=== PATIENT | male | born 1975 | race Hispanic/Latino ===

== ENCOUNTER 2023-11-20 12:20 | Inpatient (IN) | payer OTHER ==
[~2023-11-20] VITALS: Ht 170.2 cm; Wt 163.2 kg
[2023-11-20 14:23] LABS: BASOPHILS # (AUTO) 0.03 K/uL (0.00-0.20); BASOPHILS % (AUTO) 0.3 % (0.0-5.0); EOSINOPHILS # (AUTO) 0.17 K/uL (0.00-0.70); EOSINOPHILS % (AUTO) 1.8 % (0.0-8.0); HEMATOCRIT 48.4 % (42-54); IMMATURE GRANULOCYTE ABSOLUTE 0.08 K/uL (0-1); LYMPHOCYTES # (AUTO) 1.7 K/uL (1.0-4.8); LYMPHOCYTES % (AUTO) 17.3 % (21.0-51.0); MEAN CORPUSCULAR HEMOGLOBIN 31.7 pg (27.0-33.0); MEAN CORPUSCULAR HGB CONC 33.1 g/dL (32.0-36.0); MEAN CORPUSCULAR VOLUME 95.8 fL (79-99); MONOCYTES % (AUTO) 10.7 % (3.0-13.0); NEUTROPHILS # (AUTO) 6.7 K/uL (1.8-7.7); NEUTROPHILS % (AUTO) 69.1 % (40.0-77.0); PLATELET COUNT (AUTO) 196 K/uL (130-400); RED BLOOD CELL COUNT(AUTO) 5.05 MIL/uL (4.50-6.20); RED CELL DISTRIBUTION WIDTH 14.4 % (11.0-15.5); WHITE BLOOD COUNT (AUTO) 9.6 K/uL (4.8-10.8)
[2023-11-20 14:46] LABS: CREATININE 0.8 mg/dL (0.5-1.5)
[2023-11-20 14:51] LABS: ALBUMIN 3.5 g/dL (3.5-5.0); BILIRUBIN,TOTAL 0.7 mg/dL (0.2-1.0)
[2023-11-20] MEDS ORDERED: FAMOTIDINE 20MG VIAL IV ONE (17:00)
[2023-11-20] MEDS ORDERED: METOCLOPRAMIDE 10 MG/2 ML VIAL IVP ONE (17:00)
[2023-11-20] MEDS ORDERED: VANCOMYCIN KIT 1 GM/250 ML IV.KIT IV ONE (17:00)
[2023-11-20] MEDS ORDERED: 0.9%NACL 1000ML 1,000 ML IV ONE (17:00)
[2023-11-20] MEDS ORDERED: KETOROLAC 30MG VIAL (30MG/ML) IVP ONE (17:00)
[2023-11-20] MEDS: CLINDAMYCIN IVPB 600MG/50ML 50 ML IV SCH ×3 (18:42→20:05)
[2023-11-20] MEDS ORDERED: ACETAMINOPHEN 325 MG TAB PO PRN ×2 (19:00)
[2023-11-20] MEDS ORDERED: MORPHINE 2 MG SYG IV PRN (19:00)
[2023-11-20] MEDS ORDERED: ONDANSETRON 4MG INJ IV PRN (19:00)
[2023-11-20] MEDS ORDERED: VANCOMYCIN 2GM/500 ML BAG 500 ML IV ONE (19:00)
[2023-11-20] MEDS ORDERED: VANCOMYCIN PROTOCOL PER PHARMACY IV PRN (19:00)
[2023-11-20] MEDS ORDERED: LACTATED RINGERS 1000ML 1,983 ML IV ONE (19:00)
[2023-11-20] MEDS: FAMOTIDINE 20MG TAB PO SCH (21:09)
[2023-11-20] MEDS ORDERED: KCL 20 MEQ ERTAB PO PRN (21:30)
[2023-11-20] MEDS ORDERED: POTASSIUM CHLORIDE 10% ELIXIR 20 MEQ/15 ML UDCUP PO PRN (21:30)
[2023-11-20] MEDS ORDERED: MAGNESIUM 2GM PREMIX 50ML 50 ML IV PRN (21:30)
[2023-11-20] MEDS ORDERED: POTASSIUM CHLORIDE 20MEQ/100ML 100 ML IV PRN (21:30)
[2023-11-20 21:59] LABS: APPEARANCE,URINE CLEAR (CLEAR); BILIRUBIN,URINE NEGATIVE (NEGATIVE); COLOR,URINE LIGHT-YELLOW (YELLOW); GLUCOSE, URINE (UA) NEGATIVE (NEGATIVE); KETONES,URINE NEGATIVE (NEGATIVE); LEUKOCYTE ESTERASE ,URINE NEGATIVE Leu/uL (NEGATIVE); NITRATE,URINE NEGATIVE (NEGATIVE); OCCULT BLOOD,URINE NEGATIVE (NEGATIVE); PH,URINE 6.5 (5.0-8.0); PROTEIN,URINE NEGATIVE (NEGATIVE); UROBILINOGEN,URINE 0.2 mg/dL (0.2-1.0)
[2023-11-20 22:00] LABS: ADD UA MICROSCOPIC YES; SQUAMOUS EPITHELIAL CELL,UR RARE /HPF (0-2); WBC,URINE 0-1 /HPF (0-1)
[2023-11-20] MEDS ORDERED: CHLORDIAZEPOXIDE HCL 25 MG CAP ONE (22:19)
[2023-11-20] MEDS: CHLORDIAZEPOXIDE HCL 25 MG CAP PO SCH (22:19)
[2023-11-20] MEDS: LACTATED RINGERS 1000ML 1,000 ML IV SCH (22:20)
[2023-11-20] MEDS ORDERED: LORAZEPAM 2 MG/ML 1 ML VIAL IVP PRN (22:30)
[2023-11-20] MEDS ORDERED: PHARMACY COMMUNICATION MISC PRN (22:30)
[2023-11-21] VITALS (29 sets, daily range): BP systolic 97–159; BP diastolic 53–98; PULSE 74–90; RESP 16–20; O2SAT 95–99
[2023-11-21] MEDS: VANCOMYCIN 1.25 GM/250 ML BAG 250 ML IV SCH ×3 (01:42→19:55)
[2023-11-21] MEDS: CLINDAMYCIN IVPB 600MG/50ML 50 ML IV SCH (03:58)
[2023-11-21] MEDS: HYDRALAZINE 20MG/ML VIAL IV PRN (04:12)
[2023-11-21] MEDS: MORPHINE 4 MG SYG IV PRN ×2 (04:12→10:24)
[2023-11-21 07:39] LABS: BASOPHILS # (AUTO) 0.03 K/uL (0.00-0.20); BASOPHILS % (AUTO) 0.4 % (0.0-5.0); EOSINOPHILS # (AUTO) 0.14 K/uL (0.00-0.70); EOSINOPHILS % (AUTO) 1.7 % (0.0-8.0); HEMATOCRIT 40.7 % (42-54); IMMATURE GRANULOCYTE ABSOLUTE 0.06 K/uL (0-1); LYMPHOCYTES # (AUTO) 1.5 K/uL (1.0-4.8); LYMPHOCYTES % (AUTO) 17.5 % (21.0-51.0); MEAN CORPUSCULAR HEMOGLOBIN 31.6 pg (27.0-33.0); MEAN CORPUSCULAR HGB CONC 33.2 g/dL (32.0-36.0); MEAN CORPUSCULAR VOLUME 95.3 fL (79-99); MONOCYTES # (AUTO) 0.7 K/uL (0.1-1.0); NEUTROPHILS # (AUTO) 6.1 K/uL (1.8-7.7); NEUTROPHILS % (AUTO) 71.7 % (40.0-77.0); PLATELET COUNT (AUTO) 154 K/uL (130-400); RED BLOOD CELL COUNT(AUTO) 4.27 MIL/uL (4.50-6.20); RED CELL DISTRIBUTION WIDTH 14.2 % (11.0-15.5); WHITE BLOOD COUNT (AUTO) 8.5 K/uL (4.8-10.8)
[2023-11-21 07:51] LABS: CREATININE 0.8 mg/dL (0.5-1.5); PHOSPHORUS 3.4 mg/dL (2.5-4.9); POTASSIUM 4.1 mmol/L (3.5-5.1)
[2023-11-21 08:10] LABS: INR <= 0.93 (0.85-1.15); PROTHROMBIN TIME 10.6 SEC (9.6-11.6)
[2023-11-21 08:11] LABS: PARTIAL THROMBOPLASTIN TIME 26.6 SEC (26.3-35.5)
[2023-11-21] MEDS: ENOXAPARIN SODIUM 40 MG/0.4 ML SYRINGE SQ SCH (08:11)
[2023-11-21] MEDS: FAMOTIDINE 20MG TAB PO SCH ×2 (08:11→19:35)
[2023-11-21 08:24] LABS: HEMOGLOBIN A1C 6.4 % (4.0-6.0)
[2023-11-21] MEDS: LACTATED RINGERS 1000ML 1,000 ML IV SCH ×2 (11:25→19:36)
[2023-11-21] MEDS ORDERED: PROPOFOL 10 MG/ML 20ML VIAL IV ONE ×2 (12:49→13:13)
[2023-11-21] MEDS ORDERED: ROCURONIUM BROMIDE 10MG/1ML 5ML VL ONE (12:49)
[2023-11-21] MEDS ORDERED: MIDAZOLAM HCL 1 MG/ML 2ML VIAL ONE (12:49)
[2023-11-21] MEDS ORDERED: SUCCINYLCHOLINE CHLORIDE 20 MG/ML 10 ML VIAL ONE (12:49)
[2023-11-21] MEDS ORDERED: FENTANYL CITRATE PF 50 MCG/1 ML 2ML VIAL ONE (12:50)
[2023-11-21] MEDS ORDERED: ONDANSETRON 4MG INJ IVP PRN (13:30)
[2023-11-21] MEDS ORDERED: SUGAMMADEX SODIUM 200 MG/2 ML VIAL IV ONE (13:39)
[2023-11-21] MEDS: CHLORDIAZEPOXIDE HCL 25 MG CAP PO SCH ×2 (14:00→19:35)
[2023-11-21 22:49] LABS: AMPHET/METH SCREEN,URINE NEGATIVE (NEGATIVE); BARBITURATE SCREEN, URINE NEGATIVE (NEGATIVE); BENZODIAZEPINES SCREEN,URINE POSITIVE (NEGATIVE); CANNABINOID SCREEN,URINE NEGATIVE (NEGATIVE); COCAINE SCREEN,URINE NEGATIVE (NEGATIVE); OPIATE SCREEN,URINE NEGATIVE (NEGATIVE); PHENCYCLIDINE SCREEN,URINE NEGATIVE (NEGATIVE)
[2023-11-22] VITALS (9 sets, daily range): BP systolic 135–163; BP diastolic 71–89; PULSE 75–86; RESP 16–20; O2SAT 95–96
[2023-11-22] MEDS: VANCOMYCIN 1.25 GM/250 ML BAG 250 ML IV SCH ×2 (04:03→14:33)
[2023-11-22] MEDS: HYDRALAZINE 20MG/ML VIAL IV PRN (04:03)
[2023-11-22 04:30] LABS: BASOPHILS # (AUTO) 0.02 K/uL (0.00-0.20); BASOPHILS % (AUTO) 0.3 % (0.0-5.0); EOSINOPHILS % (AUTO) 3.1 % (0.0-8.0); HEMATOCRIT 42.4 % (42-54); IMMATURE GRANULOCYTE ABSOLUTE 0.04 K/uL (0-1); LYMPHOCYTES # (AUTO) 1.3 K/uL (1.0-4.8); LYMPHOCYTES % (AUTO) 20.9 % (21.0-51.0); MEAN CORPUSCULAR HEMOGLOBIN 31.9 pg (27.0-33.0); MEAN CORPUSCULAR HGB CONC 31.8 g/dL (32.0-36.0); MEAN CORPUSCULAR VOLUME 100.2 fL (79-99); MONOCYTES # (AUTO) 0.7 K/uL (0.1-1.0); MONOCYTES % (AUTO) 10.3 % (3.0-13.0); NEUTROPHILS # (AUTO) 4.2 K/uL (1.8-7.7); NEUTROPHILS % (AUTO) 64.8 % (40.0-77.0); PLATELET COUNT (AUTO) 150 K/uL (130-400); RED BLOOD CELL COUNT(AUTO) 4.23 MIL/uL (4.50-6.20); RED CELL DISTRIBUTION WIDTH 14.1 % (11.0-15.5); WHITE BLOOD COUNT (AUTO) 6.4 K/uL (4.8-10.8)
[2023-11-22 04:50] LABS: ALBUMIN 2.9 g/dL (3.5-5.0); BILIRUBIN,TOTAL 0.7 mg/dL (0.2-1.0); CREATININE 0.8 mg/dL (0.5-1.5); POTASSIUM 4.8 mmol/L (3.5-5.1); TOTAL PROTEIN, SERUM 6.7 g/dL (6.0-8.3)
[2023-11-22] MEDS: CHLORDIAZEPOXIDE HCL 25 MG CAP PO SCH ×3 (08:43→21:24)
[2023-11-22] MEDS: FAMOTIDINE 20MG TAB PO SCH ×2 (08:43→21:24)
[2023-11-22] MEDS: ENOXAPARIN SODIUM 40 MG/0.4 ML SYRINGE SQ SCH (08:44)
[2023-11-22] MEDS: LACTATED RINGERS 1000ML 1,000 ML IV SCH (16:42)
[2023-11-23] VITALS (8 sets, daily range): BP systolic 133–179; BP diastolic 79–98; PULSE 74–88; RESP 18–21; O2SAT 96–98
[2023-11-23 04:46] LABS: BASOPHILS # (AUTO) 0.03 K/uL (0.00-0.20); BASOPHILS % (AUTO) 0.5 % (0.0-5.0); EOSINOPHILS # (AUTO) 0.19 K/uL (0.00-0.70); IMMATURE GRANULOCYTE ABSOLUTE 0.04 K/uL (0-1); LYMPHOCYTES # (AUTO) 1.5 K/uL (1.0-4.8); LYMPHOCYTES % (AUTO) 23.1 % (21.0-51.0); MEAN CORPUSCULAR HEMOGLOBIN 31.3 pg (27.0-33.0); MEAN CORPUSCULAR HGB CONC 32.5 g/dL (32.0-36.0); MEAN CORPUSCULAR VOLUME 96.4 fL (79-99); MONOCYTES # (AUTO) 0.6 K/uL (0.1-1.0); NEUTROPHILS % (AUTO) 62.8 % (40.0-77.0); PLATELET COUNT (AUTO) 176 K/uL (130-400); RED BLOOD CELL COUNT(AUTO) 4.15 MIL/uL (4.50-6.20); WHITE BLOOD COUNT (AUTO) 6.4 K/uL (4.8-10.8)
[2023-11-23 05:07] LABS: ALBUMIN 2.8 g/dL (3.5-5.0); BILIRUBIN,TOTAL 0.4 mg/dL (0.2-1.0); CREATININE 0.8 mg/dL (0.5-1.5); POTASSIUM 3.7 mmol/L (3.5-5.1); TOTAL PROTEIN, SERUM 6.7 g/dL (6.0-8.3)
[2023-11-23] MEDS: CHLORDIAZEPOXIDE HCL 25 MG CAP PO SCH ×3 (10:38→21:06)
[2023-11-23] MEDS: FAMOTIDINE 20MG TAB PO SCH ×2 (10:38→21:06)
[2023-11-23] MEDS: ENOXAPARIN SODIUM 40 MG/0.4 ML SYRINGE SQ SCH (10:38)
[2023-11-23] MEDS: VANCOMYCIN 1G/250ML KIT 250 ML IV SCH ×2 (15:28→21:06)
[2023-11-23] MEDS: MORPHINE 4 MG SYG IV PRN (21:10)
[2023-11-24] VITALS (7 sets, daily range): BP systolic 135–150; BP diastolic 75–97; PULSE 74–88; RESP 18–20; O2SAT 96–97
[2023-11-24] MEDS: VANCOMYCIN 1G/250ML KIT 250 ML IV SCH ×3 (05:14→21:15)
[2023-11-24 06:01] LABS: CREATININE 0.8 mg/dL (0.5-1.5); POTASSIUM 3.7 mmol/L (3.5-5.1)
[2023-11-24] MEDS: ENOXAPARIN SODIUM 40 MG/0.4 ML SYRINGE SQ SCH (09:02)
[2023-11-24] MEDS: CHLORDIAZEPOXIDE HCL 25 MG CAP PO SCH ×3 (09:02→19:54)
[2023-11-24] MEDS: FAMOTIDINE 20MG TAB PO SCH ×2 (09:02→19:54)
[2023-11-24] MEDS: MORPHINE 4 MG SYG IV PRN (21:29)
[2023-11-25] VITALS (8 sets, daily range): BP systolic 130–146; BP diastolic 65–97; PULSE 66–79; RESP 18–20; O2SAT 98
[2023-11-25] MEDS: VANCOMYCIN 1G/250ML KIT 250 ML IV SCH ×3 (04:26→22:57)
[2023-11-25 05:06] LABS: BASOPHILS # (AUTO) 0.04 K/uL (0.00-0.20); BASOPHILS % (AUTO) 0.7 % (0.0-5.0); EOSINOPHILS # (AUTO) 0.18 K/uL (0.00-0.70); EOSINOPHILS % (AUTO) 3.2 % (0.0-8.0); HEMATOCRIT 40.5 % (42-54); IMMATURE GRANULOCYTE ABSOLUTE 0.04 K/uL (0-1); LYMPHOCYTES # (AUTO) 1.5 K/uL (1.0-4.8); LYMPHOCYTES % (AUTO) 26.6 % (21.0-51.0); MEAN CORPUSCULAR HGB CONC 33.3 g/dL (32.0-36.0); MONOCYTES # (AUTO) 0.7 K/uL (0.1-1.0); MONOCYTES % (AUTO) 12.3 % (3.0-13.0); NEUTROPHILS # (AUTO) 3.2 K/uL (1.8-7.7); NEUTROPHILS % (AUTO) 56.5 % (40.0-77.0); PLATELET COUNT (AUTO) 193 K/uL (130-400); RED BLOOD CELL COUNT(AUTO) 4.22 MIL/uL (4.50-6.20); RED CELL DISTRIBUTION WIDTH 13.4 % (11.0-15.5); WHITE BLOOD COUNT (AUTO) 5.7 K/uL (4.8-10.8)
[2023-11-25 05:17] LABS: ALBUMIN 2.9 g/dL (3.5-5.0); BILIRUBIN,TOTAL 0.3 mg/dL (0.2-1.0); CREATININE 0.9 mg/dL (0.5-1.5); POTASSIUM 3.7 mmol/L (3.5-5.1); TOTAL PROTEIN, SERUM 6.7 g/dL (6.0-8.3)
[2023-11-25] MEDS: FAMOTIDINE 20MG TAB PO SCH ×2 (09:58→20:00)
[2023-11-25] MEDS: ENOXAPARIN SODIUM 40 MG/0.4 ML SYRINGE SQ SCH (09:58)
[2023-11-25] MEDS: CHLORDIAZEPOXIDE HCL 25 MG CAP PO SCH ×3 (09:58→20:00)
[2023-11-25] MEDS: MORPHINE 4 MG SYG IV PRN (20:03)
[2023-11-26] VITALS (7 sets, daily range): BP systolic 135–152; BP diastolic 81–96; PULSE 70–100; RESP 16–20; O2SAT 95–98
[2023-11-26] MEDS: VANCOMYCIN 1G/250ML KIT 250 ML IV SCH ×3 (05:43→22:10)
[2023-11-26 07:29] LABS: HEMATOCRIT 42.5 % (42-54); MEAN CORPUSCULAR HEMOGLOBIN 31.3 pg (27.0-33.0); MEAN CORPUSCULAR HGB CONC 33.2 g/dL (32.0-36.0); MEAN CORPUSCULAR VOLUME 94.2 fL (79-99); RED BLOOD CELL COUNT(AUTO) 4.51 MIL/uL (4.50-6.20); RED CELL DISTRIBUTION WIDTH 13.2 % (11.0-15.5); WHITE BLOOD COUNT (AUTO) 5.8 K/uL (4.8-10.8)
[2023-11-26 07:40] LABS: CREATININE 0.8 mg/dL (0.5-1.5); POTASSIUM 3.9 mmol/L (3.5-5.1)
[2023-11-26] MEDS: ENOXAPARIN SODIUM 40 MG/0.4 ML SYRINGE SQ SCH (08:30)
[2023-11-26] MEDS: CHLORDIAZEPOXIDE HCL 25 MG CAP PO SCH ×3 (08:30→20:46)
[2023-11-26] MEDS: FAMOTIDINE 20MG TAB PO SCH ×2 (08:30→20:46)
[2023-11-27 04:00] VITALS: BP 150/96; PULSE 65; RESP 20
[2023-11-27 04:27] LABS: BASOPHILS # (AUTO) 0.04 K/uL (0.00-0.20); BASOPHILS % (AUTO) 0.7 % (0.0-5.0); EOSINOPHILS # (AUTO) 0.23 K/uL (0.00-0.70); EOSINOPHILS % (AUTO) 3.9 % (0.0-8.0); HEMATOCRIT 43.6 % (42-54); IMMATURE GRANULOCYTE ABSOLUTE 0.05 K/uL (0-1); LYMPHOCYTES # (AUTO) 1.7 K/uL (1.0-4.8); LYMPHOCYTES % (AUTO) 28.9 % (21.0-51.0); MEAN CORPUSCULAR HEMOGLOBIN 31.3 pg (27.0-33.0); MEAN CORPUSCULAR HGB CONC 32.3 g/dL (32.0-36.0); MEAN CORPUSCULAR VOLUME 96.7 fL (79-99); MONOCYTES # (AUTO) 0.7 K/uL (0.1-1.0); MONOCYTES % (AUTO) 11.8 % (3.0-13.0); NEUTROPHILS # (AUTO) 3.1 K/uL (1.8-7.7); NEUTROPHILS % (AUTO) 53.8 % (40.0-77.0); PLATELET COUNT (AUTO) 202 K/uL (130-400); RED BLOOD CELL COUNT(AUTO) 4.51 MIL/uL (4.50-6.20); RED CELL DISTRIBUTION WIDTH 13.2 % (11.0-15.5); WHITE BLOOD COUNT (AUTO) 5.8 K/uL (4.8-10.8)
[2023-11-27 04:48] LABS: ALBUMIN 3.1 g/dL (3.5-5.0); BILIRUBIN,TOTAL 0.4 mg/dL (0.2-1.0); CREATININE 0.9 mg/dL (0.5-1.5); TOTAL PROTEIN, SERUM 6.9 g/dL (6.0-8.3)
[2023-11-27] MEDS: VANCOMYCIN 1G/250ML KIT 250 ML IV SCH ×2 (05:09→14:28)
[2023-11-27 08:00] VITALS: BP 163/89; PULSE 77; RESP 16
[2023-11-27] MEDS: FAMOTIDINE 20MG TAB PO SCH (08:02)
[2023-11-27] MEDS: CHLORDIAZEPOXIDE HCL 25 MG CAP PO SCH ×2 (08:02→14:30)
[2023-11-27] MEDS: ENOXAPARIN SODIUM 40 MG/0.4 ML SYRINGE SQ SCH (08:03)
[2023-11-27 12:00] VITALS: BP_SYST 123; BP_SYST 139; BP_DIAS 57; BP_DIAS 86; PULSE 67; PULSE 84; RESP 17
== END 2023-11-27 16:10 | DRG 603 ==
LOC: EDH 12:20 → EDHIP 18:34 → 3AH 11-21 16:30
PROVIDERS: ADMIT Internal Medicine; ATTEND Internal Medicine
PROC: 0Y9C0ZZ Drainage of Right Upper Leg, Open Approach (ICD-10-PCS; principal; 2023-11-21 12:55)
DX: L03.115 Cellulitis of right lower limb (principal); Z68.43 Body mass index [BMI] 50.0-59.9, adult; E44.0 Moderate protein-calorie malnutrition; L02.415 Cutaneous abscess of right lower limb; E11.9 Type 2 diabetes mellitus without complications; F10.20 Alcohol dependence, uncomplicated; E66.01 Morbid (severe) obesity due to excess calories; L02.416 Cutaneous abscess of left lower limb; I10 Essential (primary) hypertension; Z88.0 Allergy status to penicillin; Z90.49 Acquired absence of other specified parts of digestive tract
CPT/HCPCS: 36415; 71045; 76882; 80048; 80053; 80202; 80305; 81001; 82550; 82948; 83036; 83605; 83735; 84100; 84145; 85025; 85027; 85610; 85730; 86850; 86900; 86901; 87040; 87070; 87076; 87205; 87324; 93005; G0378; J0330; J0360; J1650; J1885; J2250; J2270; J2405; J2704; J2765; J3010; J3370; J3490; J7120; 3370; A4215; A4216; A4221; A4222; A4223; A4452; A4663